=== PATIENT | male | born 1965 | race Caucasian/White ===

== ENCOUNTER 2016-11-16 06:00 | Emergency (ER) | payer OTHER ==
[2016-11-16] MEDS ORDERED: GLUCOTROL 5M5 MG/TAB PO (06:06)
[2016-11-16] MEDS ORDERED: PRINIVIL5 M1 PO (06:06)
[2016-11-16] MEDS ORDERED: GLUCOPHAGE XR500 M2 PO (06:07)
[2016-11-16] MEDS ORDERED: ST. JOSEPH ASPI81 MG PO (06:07)
[2016-11-16] MEDS ORDERED: GABAPENTIN100 MG PO (06:07)
[2016-11-16] MEDS ORDERED: NORCO 325 MG-51 TA1 PO (09:36)
[2016-11-16] MEDS ORDERED: KETOROLAC10 MG PO (09:36)
[2016-11-16] MEDS ORDERED: ZOFRAN ODT8 M1 PO (09:36)
[2016-11-16] MEDS ORDERED: FLOMAX0.4 MG PO (09:36)
[2016-11-16 09:50] VITALS: BP 124/79
== END 2016-11-16 09:48 | disposition home or self-care (01) ==
LOC: ED 06:00
DX: N20.1 Calculus of ureter (principal); E11.9 Type 2 diabetes mellitus without complications; I10 Essential (primary) hypertension; Z79.84 Long term (current) use of oral hypoglycemic drugs
CPT/HCPCS: J1885; J2405; J2550; J3010; J7030; Q9967

== ENCOUNTER 2020-04-12 19:05 | Emergency (ER) | payer BC ==
[~2020-04-12 19:05] MED LIST: FLOMAX0.4 MG PO; GABAPENTIN100 MG PO; GLUCOPHAGE XR500 M2 PO; GLUCOTROL 5M5 MG/TAB PO; KETOROLAC10 MG PO; NORCO 325 MG-51 TA1 PO; PRINIVIL5 M1 PO; ST. JOSEPH ASPI81 MG PO; ZOFRAN ODT8 M1 PO
[2020-04-12] MEDS ORDERED: SOLIQUA 100 UNIT3 ML SQ (19:18)
[2020-04-12] MEDS ORDERED: FUROSEMIDE20 MG PO (19:18)
[2020-04-12 19:39] LABS: HEMATOCRIT 42.7 % (42.0-52.0); HEMOGLOBIN 13.9 g/dL (13.5-18.0); MEAN CELL VOLUME 85 fl (78-100); MEAN CORPUSCULAR HEMOGLOBIN 28 pg (27-31); MEAN CORPUSCULAR HGB CONC 33 g/dL (33-37); MEAN PLATELET VOLUME 10.2 fl (7.4-10.4); PLATELET COUNT 176 K/mm3 (130-400); RED BLOOD COUNT 5.03 M/mm3 (4.20-5.60); RED CELL DISTRIBUTION WIDTH 14.2 % (11.5-14.5); WHITE BLOOD COUNT 14.3 K/mm3 (4.8-10.8)
[2020-04-12 19:43] LABS: LYMPHOCYTE 8 % (20-51); MONOCYTE 7 % (3-10); NEUTROPHILS 83 % (42-75)
[2020-04-12 19:48] LABS: ALBUMIN 3.7 g/dL (3.5-5.0); POTASSIUM 3.9 mmol/L (3.5-5.1)
[2020-04-12 19:49] LABS: CALCIUM 8.9 mg/dL (8.3-10.5)
[2020-04-12 19:52] LABS: TOTAL BILIRUBIN 0.6 mg/dL (0.2-1.2)
[2020-04-12 20:04] VITALS: BP 127/88
[2020-04-12] MEDS ORDERED: CLEOCIN HCL300 MG PO (20:09)
== END 2020-04-12 20:16 | disposition home or self-care (01) ==
LOC: ED 19:05
PROVIDERS: Nurse Practitioner
DX: L03.116 Cellulitis of left lower limb (principal); E11.9 Type 2 diabetes mellitus without complications; I10 Essential (primary) hypertension; Z79.4 Long term (current) use of insulin
CPT/HCPCS: J0696

== ENCOUNTER 2020-04-13 18:23 | Inpatient (IN) | payer BC ==
[~2020-04-13] VITALS: Ht 182.9 cm; Wt 147.8 kg
[~2020-04-13 18:23] MED LIST changes: +CLEOCIN HCL300 MG PO; +FUROSEMIDE20 MG PO; +SOLIQUA 100 UNIT3 ML SQ
[2020-04-13 18:56] LABS: HEMATOCRIT 42.5 % (42.0-52.0); MEAN CELL VOLUME 84 fl (78-100); MEAN CORPUSCULAR HEMOGLOBIN 28 pg (27-31); MEAN CORPUSCULAR HGB CONC 33 g/dL (33-37); MEAN PLATELET VOLUME 10.2 fl (7.4-10.4); PLATELET COUNT 187 K/mm3 (130-400); RED BLOOD COUNT 5.05 M/mm3 (4.20-5.60); RED CELL DISTRIBUTION WIDTH 14.5 % (11.5-14.5); WHITE BLOOD COUNT 19.5 K/mm3 (4.8-10.8)
[2020-04-13 19:00] LABS: LYMPHOCYTE 11 % (20-51); MONOCYTE 12 % (3-10); NEUTROPHILS 75 % (42-75)
[2020-04-13 19:03] LABS: ALBUMIN 3.6 g/dL (3.5-5.0)
[2020-04-13 19:04] LABS: POTASSIUM 4.2 mmol/L (3.5-5.1)
[2020-04-13 19:05] LABS: CALCIUM 8.9 mg/dL (8.3-10.5)
[2020-04-13 19:06] LABS: TOTAL PROTEIN 7.2 g/dL (6.4-8.3)
[2020-04-13 19:08] LABS: TOTAL BILIRUBIN 0.7 mg/dL (0.2-1.2)
[2020-04-13 19:23] LABS: D-DIMER 0.7 mg/L FEU (0.15-0.50)
[2020-04-13 19:46] LABS: ERYTHROCYTE SEDIMENTATION RATE 44 mm/hr (0-20)
[2020-04-13 20:45] VITALS: BP 119/74
[2020-04-13 21:06] VITALS: BP 119/74
[2020-04-14] VITALS (8 sets, daily range): BP systolic 88–118; BP diastolic 50–72
[2020-04-14 05:48] LABS: POTASSIUM 4.4 mmol/L (3.5-5.1)
[2020-04-14 05:49] LABS: CALCIUM 8.4 mg/dL (8.3-10.5)
[2020-04-14 05:52] LABS: HEMATOCRIT 39.5 % (42.0-52.0); HEMOGLOBIN 12.9 g/dL (13.5-18.0); MEAN CELL VOLUME 86 fl (78-100); MEAN CORPUSCULAR HEMOGLOBIN 28 pg (27-31); MEAN CORPUSCULAR HGB CONC 33 g/dL (33-37); MEAN PLATELET VOLUME 10.4 fl (7.4-10.4); PLATELET COUNT 175 K/mm3 (130-400); RED BLOOD COUNT 4.57 M/mm3 (4.20-5.60); RED CELL DISTRIBUTION WIDTH 14.6 % (11.5-14.5); WHITE BLOOD COUNT 14.7 K/mm3 (4.8-10.8)
[2020-04-14 06:11] LABS: BAND 5 % (0-10); LYMPHOCYTE 6 % (20-51); MONOCYTE 9 % (3-10); NEUTROPHILS 79 % (42-75)
[2020-04-14 06:12] LABS: TOXIC GRANULATION PRESENT
--- NOTE | 2020-04-14 07:30 | NUR ---
PT ASSISTED TO RADIOLOGY FOR LOWER EXTREMITY ULTRASOUND AT THIS TIME
--- NOTE | 2020-04-14 11:00 | NUR ---
CAROLYN WRAP AND HEATING PAD APPLIED TO LLE PER ORDER, PT DENIES FURTHER NEEDS, LEG ELEVATED, ROOM PRIVILEGES GRANTED PER ONEL SINGH, PT HAS STRONG STEADY GAIT TO RESTROOM AT THIS TIME, 900CC OF URINE OUT FOLLOWING PO LASIX THIS AM, IVF DC'D, INT REMAINS INTACT FOR FUTURE IV ABX DOSES, DISCUSSING POTENTIAL DC DATE OF TOMORROW IF PT CONTINUES TO IMPROVE
--- NOTE | 2020-04-14 17:38 | NUR ---
PT CONTINUES TO C/O SEVERE LEFT BEHIND THE KNEE PAIN, ONEL SINGH AT BEDSIDE DISCUSSING HEALTH STATUS AND PLAN OF CARE WITH PATIENT, AGREEABLE TO IV TORADOL AT THIS TIME TO FURTHER ASSIST WITH PAIN CONTROL, PT STATES PO PAIN CONTROL AND IV MORPHINE "HAS NOT TOUCHED THE PAIN", WILL ADMINISTER IV TORADOL UPON ORDER
--- NOTE | 2020-04-14 21:30 | NUR ---
Ijeoma SINGH notified of patients manual BP 88/50. HR 71. Patient denies dizziness States he feels fine and has drank 3 pitchers full of water today. Patient stands at bedside and asymptomatic. Ijeoma states notify her if SBP <90. Will recheck BP at 2330.
--- NOTE | 2020-04-14 22:30 | NUR ---
Patients brought in computer and clothing-left with admissions and given to patient. Patient IV wrapped and patient takes shower independently. LLE from ankle down rewrapped with hortencia bandage. Kpad to LLL.
--- NOTE | 2020-04-15 00:25 | NUR ---
Patient asks if he may have another dose of IV toradol. Reports that's the only thing that has helped for his LLE pain. Rates pain 5.5/10 on pain scale and Ijeoma SINGH notified. New order received and toradol 30mg given SIV.
[2020-04-15 02:04] VITALS: BP 90/53
--- NOTE | 2020-04-15 05:15 | NUR ---
Patient resting with eyes closed. Awakened for am med and vitals. BP 97/61. Denies needs.
[2020-04-15 06:09] LABS: MEAN CELL VOLUME 86 fl (78-100); MEAN CORPUSCULAR HEMOGLOBIN 28 pg (27-31); MEAN CORPUSCULAR HGB CONC 32 g/dL (33-37); MEAN PLATELET VOLUME 10.2 fl (7.4-10.4); PLATELET COUNT 160 K/mm3 (130-400); RED BLOOD COUNT 4.28 M/mm3 (4.20-5.60); RED CELL DISTRIBUTION WIDTH 14.6 % (11.5-14.5); WHITE BLOOD COUNT 10.1 K/mm3 (4.8-10.8)
[2020-04-15 06:11] VITALS: BP 97/61
[2020-04-15 06:24] LABS: POTASSIUM 4.2 mmol/L (3.5-5.1)
[2020-04-15 06:25] LABS: CALCIUM 8.3 mg/dL (8.3-10.5)
[2020-04-15 06:39] LABS: BAND 1 % (0-10); LYMPHOCYTE 13 % (20-51); MONOCYTE 14 % (3-10); NEUTROPHILS 65 % (42-75)
[2020-04-15 10:20] VITALS: BP 129/74
[2020-04-15 14:16] VITALS: BP 123/77
--- NOTE | 2020-04-15 17:36 | NUR ---
PT NOTIFIES STAFF HE IS FEELING "SHORT OF BREATH" AND HAVING "CHEST PRESSURE IN HIS UPPER CHEST", REPORTS HE "HAS THESE SPELLS OFTEN AFTER FOOTBALL SEASON WHEN HE STARTS COUGHING THEN STARTS TO FEEL PANICKED WHEN HE CAN'T BREATHE", EKG OBTAINED, LABS ORDERED, PO ASPIRIN ADMINISTERED, PT PLACED ON TELE, BEGINS LAUGHING THROUGHOUT CONVERSATION, ATE 100% OF SUPPER AND REPORTS IT "TASTED GREAT", DENIES ANY OTHER SYMPTOMS
--- NOTE | 2020-04-15 17:49 | NUR ---
EKG AND TELE STABLE, VITAL SIGNS STABLE, MICHAEL CARTER NOTIFIED
[2020-04-15 18:01] LABS: D-DIMER 0.24 mg/L FEU (0.15-0.50)
[2020-04-15 18:30] VITALS: BP 146/81
--- NOTE | 2020-04-15 20:00 | NUR ---
PATIENT REPORTS NAGGING DRY COUPH AND MICHAEL PUGA NOTIFIED AND NEW ORDER RECEIVED. DARLENE DAMON REVIEWED AND GIVEN. STATES "I LIKE THE DM". REPORTS PAIN BACK OF KNEE 6-11/06 BUT DECLINES PAIN MED. PAIN NO LONGER SHARP BUT IS DULL ACHE.
[2020-04-15 22:13] VITALS: BP 101/67
--- NOTE | 2020-04-15 22:45 | NUR ---
Patient rests in bed with eyes closed. Respirations with ease.
--- NOTE | 2020-04-15 23:15 | NUR ---
Patient reports his couph is much better. No couph noted at this time.
[2020-04-16 01:57] VITALS: BP 115/74
--- NOTE | 2020-04-16 02:00 | NUR ---
Patient woke up briefly during vital signs then returned to resting with eyes closed.
--- NOTE | 2020-04-16 04:04 | NUR ---
Patient has been resting with eyes closed. Tele reads NSR with occasional PVC's noted.
--- NOTE | 2020-04-16 05:29 | NUR ---
Patient reports fan irritated his couph and robitussing given. States "toes feel better, and back of knee better. Reports calf is an irritating ache. Accepts tylenol for pain.
[2020-04-16 06:17] VITALS: BP 124/80
[2020-04-16 07:05] LABS: POTASSIUM 4.4 mmol/L (3.5-5.1)
[2020-04-16 07:06] LABS: CALCIUM 8.5 mg/dL (8.3-10.5); HEMATOCRIT 39.9 % (42.0-52.0); HEMOGLOBIN 12.7 g/dL (13.5-18.0); MEAN CELL VOLUME 86 fl (78-100); MEAN CORPUSCULAR HEMOGLOBIN 27 pg (27-31); MEAN CORPUSCULAR HGB CONC 32 g/dL (33-37); MEAN PLATELET VOLUME 10.4 fl (7.4-10.4); PLATELET COUNT 226 K/mm3 (130-400); RED BLOOD COUNT 4.64 M/mm3 (4.20-5.60); RED CELL DISTRIBUTION WIDTH 14.3 % (11.5-14.5); WHITE BLOOD COUNT 9.2 K/mm3 (4.8-10.8)
[2020-04-16 07:23] LABS: BAND 2 % (0-10); LYMPHOCYTE 23 % (20-51); METAMYELOCYTE 2 % (0-0); MONOCYTE 7 % (3-10); NEUTROPHILS 62 % (42-75)
[2020-04-16 10:06] VITALS: BP 134/77
--- NOTE | 2020-04-16 10:35 | NUR ---
REPORT RECIEVED FROM Cleopatra GIBSON RN
--- NOTE | 2020-04-16 11:21 | NUR ---
A GNADT IN TO SEE PATIENT AT THIS TIME.
[2020-04-16] MEDS ORDERED: CLINDAMYCIN 300MG PO (13:53)
[2020-04-16 14:03] VITALS: BP 112/72
--- NOTE | 2020-04-16 16:15 | NUR ---
PATIENT PROVIDED DISCHARGE INSTRUCTIONS AT THIS TIME. PATIENT SET UP FOR OUTPATIENT IV ROCEPHIN TGOMORROW MORNING AT 1000. PATIENT HAS IV CLEOCIN INFUSING AT THIS TIME. PATIENT'S DISCHARGE INSTRUCTIONS AND MEDICATIONS GONE OVER IN DEPTH WITH PATIENT. PATIENT VERBALIZES UNDERSTANDING OF INSTRUCTIONS.DENIES ANY QUESTIONS FOR THE NURSE AT THIS TIME. PATIENT'S CALL LIGHT WITHIN REACH.
--- NOTE | 2020-04-16 16:43 | NUR ---
PATIENT'S IV CLEOCIN COMPLETE. IV D/C'D. PATIENT LEFT FACILITY VIA WHEELCHAIR TO POV AT THIS TIME. PERSONAL BELONGINGS AND D/C PAPERWORK SENT WITH PATIENT.
[2020-04-16 17:54] VITALS: BP 131/77
== END 2020-04-16 16:43 | disposition home or self-care (01) | DRG 603 ==
LOC: ED 18:23 → MED/SURG 19:48
PROVIDERS: Physician Assistant; ADMIT Nurse Practitioner Family
DX: L03.116 Cellulitis of left lower limb (principal); E11.9 Type 2 diabetes mellitus without complications; I10 Essential (primary) hypertension; Z20.828 Contact with and (suspected) exposure to other viral communicable diseases; Z79.4 Long term (current) use of insulin
CPT/HCPCS: 90715; J0696; J1650; J1815; J1885; J2270; J2405; J3490; J7030

== ENCOUNTER 2020-04-21 10:26 | Outpatient (RCR) | payer BC ==
[2020-04-17 10:25] VITALS: BP 119/78
[2020-04-18 10:38] VITALS: BP 120/78
[2020-04-19 10:19] VITALS: BP 118/79
[2020-04-20 10:10] VITALS: BP 155/68
[~2020-04-21] VITALS: Ht 182.9 cm; Wt 147.8 kg
[~2020-04-21 10:26] MED LIST changes: +CLINDAMYCIN 300MG PO
[2020-04-21 10:50] VITALS: BP 111/68
== END 2020-04-21 11:00 | disposition home or self-care (01) ==
LOC: AMSURD 10:26
DX: L03.116 Cellulitis of left lower limb (principal)
CPT/HCPCS: J0696

== ENCOUNTER 2021-06-03 11:58 | Emergency (ER) | payer BC ==
[~2021-06-03] VITALS: Ht 182.9 cm; Wt 151.5 kg
[2021-06-03] MEDS ORDERED: ZANAFLEX4 M1 PO (12:44)
[2021-06-03 14:10] VITALS: BP 92/55
[2021-06-03] MEDS ORDERED: ACETAMINOPHEN-H1 TA2 PO (14:13)
== END 2021-06-03 14:20 | disposition home or self-care (01) ==
LOC: ED 11:58
DX: M54.50 Low back pain, unspecified (principal); E11.9 Type 2 diabetes mellitus without complications; Z79.4 Long term (current) use of insulin; Z79.84 Long term (current) use of oral hypoglycemic drugs; W01.0XXA Fall on same level from slipping, tripping and stumbling without subsequent striking against object, initial encounter; Y93.H1 Activity, digging, shoveling and raking
CPT/HCPCS: J1885

== ENCOUNTER → 2021-08-15 | Outpatient (CLI) | payer BC ==
[~2021-08-15] MED LIST changes: +ACETAMINOPHEN-H1 TA2 PO; +ZANAFLEX4 M1 PO
[2021-08-15 12:54] LABS: ALBUMIN 3.9 g/dL (3.5-5.0); POTASSIUM 4.7 mmol/L (3.5-5.1)
[2021-08-15 12:56] LABS: CALCIUM 9.7 mg/dL (8.3-10.5)
[2021-08-15 12:57] LABS: TOTAL PROTEIN 7.4 g/dL (6.4-8.3)
[2021-08-15 13:01] LABS: TOTAL BILIRUBIN 0.4 mg/dL (0.2-1.2)
== END ==
LOC: LAB 12:18
PROVIDERS: Internal Medicine
DX: E11.42 Type 2 diabetes mellitus with diabetic polyneuropathy (principal); E78.5 Hyperlipidemia, unspecified; Z79.4 Long term (current) use of insulin

== ENCOUNTER 2023-03-12 16:34 | Outpatient (RCR) | payer BC ==
[2023-03-08 16:35] VITALS: BP 161/73
[2023-03-09 16:20] VITALS: BP 132/78
[2023-03-10 16:28] VITALS: BP 129/74
[2023-03-11 16:15] VITALS: BP 115/71
[~2023-03-12] VITALS: Ht 182.9 cm; Wt 157.3 kg
[~2023-03-12 16:34] MED LIST changes: +ATORVASTATIN CA20 MG PO; +GLIPIZIDE10 M2 PO; +METFORMIN ER500 MG PO
[2023-03-12 17:01] VITALS: BP 104/65
== END 2023-03-29 | disposition home or self-care (01) ==
LOC: AMSURD
DX: L03.115 Cellulitis of right lower limb (principal)
CPT/HCPCS: J0696

== ENCOUNTER → 2023-07-11 | Outpatient (CLI) | payer BC | LOC: RAD 15:14 | DX: M25.812 Other specified joint disorders, left shoulder (principal) ==